=== PATIENT | female | born 1990 | race Caucasian/White ===

== ENCOUNTER 2017-10-30 12:28 | Emergency (ER) | END 2017-10-30 13:00 | disposition left against medical advice (07) ==

== ENCOUNTER 2018-03-30 12:39 | Emergency (ER) | END 2018-03-30 15:37 | disposition left against medical advice (07) ==

== ENCOUNTER 2018-05-18 22:02 | Emergency (ER) | END 2018-05-19 02:05 | disposition home or self-care (01) ==

== ENCOUNTER 2018-07-23 22:21 | Emergency (ER) | END 2018-07-24 03:23 | disposition left against medical advice (07) ==